=== PATIENT | female | born 1965 | race Caucasian/White ===

== ENCOUNTER 2018-12-30 14:59 | Emergency (ER) | payer BC ==
[2018-12-30] MEDS ORDERED: Sodium Chloride 0.9% 10 ML Syringe FLUSH PRN (15:09)
[2018-12-30] MEDS ORDERED: Sodium Chloride 0.9% 1,000 ML IV SCH (15:15)
[2018-12-30] MEDS ORDERED: Acetaminophen 325 MG Tab PO ONE (15:23)
[2018-12-30] MEDS ORDERED: Haloperidol Lactate 5 MG/ML SDV IM ONE (15:24)
[2018-12-30] MEDS ORDERED: Benztropine 1 MG Tab PO ONE (15:26)
--- NOTE | 2018-12-30 15:34 | EDM.PDOC ---
ED HPI GENERAL MEDICAL PROBLEM - General Chief Complaint: Neuro Symptoms/Deficits Stated Complaint: NUMBNESS ON RIGHT SIDE Time Seen by Provider: 12/30/18 15:07 Source of Information: Reports: Patient History Limitations: Reports: No Limitations - History of Present Illness INITIAL COMMENTS - FREE TEXT/NARRATIVE: Patient is a 53-year-old female presents ED complaining of left-sided occipital headache with paresthesias to the left side of her face, neck, chest, upper arm. Initial NIH score is 0. This started proximal one hour ago. She has no slurred speech, vision changes, tongue deviation, weakness discrepancies to the upper and lower extremities, gait abnormalities, or any history of CVA/TIA. She states all symptoms came on after the headache started. Headache is mild to moderate intensity. Rated 5 out of 10. Localized with no radiation. There's been no recent trauma that precipitated this. She has had similar symptoms approximately one week ago. The parathesia's came on with the headache and resolved with a headache as well. She has no history of migraines. She has not taken any medications prior to arrival. She denies any fever, chills, sinus congestion, ear pain, throat pain, chest pain, sob, abdominal pain, nausea or vomiting, or focal neurological deficits. Symptoms came on at 1400 hrs today. She carries a history of breast cancer with double mastectomy required no chemotherapy or radiation. She is currently on no medications. Surgical history includes: Total hysterectomy, right hip replacement. She has no PCP. She does not smoke. She's not use alcohol. She denies recreational drugs. Headache Pain Score (Numeric/FACES): 7 - Related Data Allergies Allergy/AdvReac Type Severity Reaction Status Date / Time duloxetine HCl Allergy Headache Verified 12/30/18 15:17 [From Cymbalta] tattoo ink Allergy Airway Uncoded 03/21/15 01:13 Tightness Home Meds: Home Meds Apixaban [Eliquis] 2.5 mg PO BID 03/13/15 [History] Hydrocodone/Acetaminophen [Hydrocodon-Acetaminoph 7.5-325] 1 - 2 tab PO ASDIRECTED PRN 03/13/15 [History] hydrOXYzine Pamoate [Hydroxyzine Pamoate] 25 mg PO ASDIRECTED PRN 03/13/15 [ History] Past Medical History Other HEENT History: Eye surgery for vision keretotomy - Past Surgical History Other Musculoskeletal Surgeries/Procedures:: RTH on Sunday due to "history of hip dysplasia and socket was worn out" Social & Family History - Tobacco Use Smoking Status *Q: Never Smoker ED ROS GENERAL - Review of Systems Review Of Systems: ROS reveals no pertinent complaints other than HPI. ED EXAM, NEURO - Physical Exam Exam: See Below Exam Limited By: No Limitations General Appearance: Alert, WD/WN, No Apparent Distress Eye Exam: Bilateral Eye: EOMI, Normal Inspection, Nystagmus (none noted), PERRL , Vision Changes (none stated) Ears: Hearing Grossly Normal Nose: Normal Inspection Throat/Mouth: Normal Inspection, Normal Oropharynx, Normal Voice, No Airway Compromise Head Exam: Atraumatic, Normocephalic Neck: Normal Inspection, Supple Respiratory/Chest: No Respiratory Distress, Lungs Clear, Normal Breath Sounds, No Accessory Muscle Use Cardiovascular: Normal Peripheral Pulses, Regular Rate, Rhythm, No Murmur ( obvious) Neurological: Alert, Normal Mood/Affect, Normal Dorsiflexion, CN II-XII Intact, Normal Plantar Flexion, No Motor/Sensory Deficits, Oriented x 3, Other (No facial droop, slurred speech, tongue deviation, weakness discrepancies to the upper and lower extremities. Pronator drift negative. [id number] and rapid alternating movements are intact. ) Back Exam: Normal Inspection Extremities: Non-Tender, No Pedal Edema Psychiatric: Normal Affect, Normal Mood Skin Exam: Warm, Dry, Intact, Normal Color, No Rash Course - Vital Signs Last Recorded V/S: Last Vital Signs Temp 97.2 F 12/30/18 15:07 Pulse 79 12/30/18 15:07 Resp 16 12/30/18 15:07 BP 169/83 H 12/30/18 15:07 Pulse Ox 98 12/30/18 15:07 - Orders/Labs/Meds Orders: Active Orders 24 hr Category Date Time Status EKG Documentation Completion [RC] STAT Care 12/30/18 15:10 Active Peripheral IV Care [RC] . DIRECTED Care 12/30/18 15:09 Active Head wo Cont [CT] Routine Exams 12/30/18 15:00 Taken Sodium Chloride 0.9% [Normal Saline] 1,000 ml Med 12/30/18 15:15 Active IV ASDIRECTED Sodium Chloride 0.9% [Saline Flush] Med 12/30/18 15:09 Active 10 ml FLUSH ASDIRECTED PRN Peripheral IV Insertion Adult [OM.PC] Routine Oth 12/30/18 15:09 Ordered Peripheral IV Insertion Adult [OM.PC] Routine Oth 12/30/18 15:12 Ordered Medication Orders Sodium Chloride (Normal Saline) 1,000 mls @ 150 mls/hr IV ASDIRECTED MARSHA Last Admin: 12/30/18 15:33 Dose: 150 mls/hr Sodium Chloride (Saline Flush) 10 ml FLUSH ASDIRECTED PRN PRN Reason: Keep Vein Open Last Admin: 12/30/18 15:34 Dose: 10 ml Labs: Laboratory Tests 12/30/18 12/30/18 12/30/18 Range/Units 15:06 15:30 15:30 WBC 5.04 (3.98-10.04) K/mm3 RBC 4.46 (3.98-5.22) M/mm3 Hgb 13.6 (11.2-15.7) gm/L Hct 41.4 (34.1-44.9) % MCV 92.8 (79.4-94.8) fl MCH 30.5 (25.6-32.2) pg MCHC 32.9 (32.2-35.5) g/dl RDW Std Deviation 44.9 (36.4-46.3) fL Plt Count 244 (182-369) K/mm3 MPV 8.9 L (9.4-12.3) fl Neutrophils % (Manual) 47 (40-60) % Band Neutrophils % 1 (0-10) % Lymphocytes % (Manual) 43 H (20-40) % Atypical Lymphs % 0 % Monocytes % (Manual) 8 (2-10) % Eosinophils % (Manual) 1 (0.7-5.8) % Basophils % (Manual) 0 L (0.1-1.2) Platelet Estimate Adequate RBC Morph Comment Normal PT (9.5-12.1) SECONDS INR APTT (24-31) SECONDS Sodium 141 (136-145) mEq/L Potassium 3.9 (3.5-5.1) mEq/L Chloride 104 (98-107) mEq/L Carbon Dioxide 29 (21-32) mEq/L Anion Gap 11.9 (5-15) BUN 18 (7-18) mg/dL Creatinine 0.7 (0.55-1.02) mg/dL Est Cr Clr Drug Dosing 79.34 mL/min Estimated GFR (MDRD) > 60 (>60) mL/min BUN/Creatinine Ratio 25.7 H (14-18) Glucose 134 H (74-106) mg/dL POC Glucose 108 H (70-105) mg/dL Calcium 9.5 (8.5-10.1) mg/dL Total Bilirubin 0.4 (0.2-1.0) mg/dL AST 20 (15-37) U/L ALT 29 (14-59) U/L Alkaline Phosphatase 75 (46-116) U/L Troponin I < 0.017 (0.00-0.056) ng/mL Total Protein 7.5 (6.4-8.2) g/dl Albumin 4.2 (3.4-5.0) g/dl Globulin 3.3 gm/dL Albumin/Globulin Ratio 1.3 (1-2) /18/19 Range/Units 15:30 WBC (3.98-10.04) K/mm3 RBC (3.98-5.22) M/mm3 Hgb (11.2-15.7) gm/L Hct (34.1-44.9) % MCV (79.4-94.8) fl MCH (25.6-32.2) pg MCHC (32.2-35.5) g/dl RDW Std Deviation (36.4-46.3) fL Plt Count (182-369) K/mm3 MPV (9.4-12.3) fl Neutrophils % (Manual) (40-60) % Band Neutrophils % (0-10) % Lymphocytes % (Manual) (20-40) % Atypical Lymphs % % Monocytes % (Manual) (2-10) % Eosinophils % (Manual) (0.7-5.8) % Basophils % (Manual) (0.1-1.2) Platelet Estimate RBC Morph Comment PT 10.2 (9.5-12.1) SECONDS INR 0.93 APTT 26 (24-31) SECONDS Sodium (136-145) mEq/L Potassium (3.5-5.1) mEq/L Chloride (98-107) mEq/L Carbon Dioxide (21-32) mEq/L Anion Gap (5-15) BUN (7-18) mg/dL Creatinine (0.55-1.02) mg/dL Est Cr Clr Drug Dosing mL/min Estimated GFR (MDRD) (>60) mL/min BUN/Creatinine Ratio (14-18) Glucose (74-106) mg/dL POC Glucose (70-105) mg/dL Calcium (8.5-10.1) mg/dL Total Bilirubin (0.2-1.0) mg/dL AST (15-37) U/L ALT (14-59) U/L Alkaline Phosphatase (46-116) U/L Troponin I (0.00-0.056) ng/mL Total Protein (6.4-8.2) g/dl Albumin (3.4-5.0) g/dl Globulin gm/dL Albumin/Globulin Ratio (1-2) Meds: Medications Generic Name Dose Route Start Last Admin Trade Name Freq PRN Reason Stop Dose Admin Sodium Chloride 1,000 mls @ 150 mls/hr 12/30/18 15:15 12/30/18 15:33 Normal Saline IV 150 mls/hr ASDIRECTED MARSHA Administration Sodium Chloride 10 ml 12/30/18 15:09 12/30/18 15:34 Saline Flush FLUSH 10 ml ASDIRECTED PRN Administration Keep Vein Open Discontinued Medications Generic Name Dose Route Start Last Admin Trade Name Freq PRN Reason Stop Dose Admin Acetaminophen 975 mg 12/30/18 15:23 12/30/18 15:41 Tylenol PO 12/30/18 15:24 975 mg NOW ONE Administration Benztropine Mesylate 1 mg 12/30/18 15:26 12/30/18 15:42 Cogentin PO 12/30/18 15:27 1 mg ONETIME ONE Administration Haloperidol Lactate 5 mg 12/30/18 15:24 12/30/18 15:40 Haldol IM 12/30/18 15:25 5 mg ONETIME ONE Administration - Re-Assessments/Exams Free Text/Narrative Re-Assessment/Exam: Stroke alert called for left-sided occipital headache with paresthesias to the left side of the face, neck, upper chest, and upper arm. Initial NIH score is 0. Upon returning back to the examination room. Vital signs with admission to the ED: Blood pressure 169/83, heart rate 79, temperature 97.2, SPO2 98%, and respiratory rate 16. Initial examination patient has no focal neurological deficits. No facial droop , slurred speech, tongue deviation, weakness discrepancies to the upper and lower extremities. Finger to nose and rapid alternating movements are intact. Headache is located on left side occipital region with paresthesias to the left side of the face, neck, upper chest, and upper arm. This came on abruptly with headache one hour ago on its own accord with no known precipitating factors. Headache is mild to moderate in nature. She has not received any medications prior to arrival. She has a history of similar symptoms one week ago that came after drinking one beer. She states normally with streaking. She gets a headache. This went away over the night. She had no residual effects. Initial NIH scale is negative. Differential diagnosis: Complex migraine or TIA/stroke. Highly unlikely related to a stroke with headache present with paresthesias on unilateral side. IV established with NS 150mls/hr. Initial labs and studies will include: CBC, C14, Troponin, coag studies, EKG, and CXR. I have discussed the patient with Dr. Diaz and he suspects patient has a complex migraine. Suggested haldol 5mg IM and cogentin 1mg PO. If resolves with medications it is migraine in nature. No testing required. EKG: NSR. AVB. Q waves present in inferior leads. No ischemic changes. CT of the head impression: No findings concerning for intracerebral hemorrhage. Final interpretation is pending. CXR: No acute findings noted. Reviewed with Dr. Diaz. Final interpretation is pending. 12/30/18 16:20 Reassessment, patient states her headache is gone. Paraesthesias to the left arm/neck are gone. Patient continues to have residual n/t to the face. She exhibits no focal neurological deficts. VSS. Again I suspect this is more likely a complex migraine. Symptoms are improving after administration of abortive medications. Patient is ready be discharged home. Will allow the symptoms to subside prior to discharge. 12/30/18 16:[address] Rashid [facility]rologists at [facility]. He agreed most likely related to a complex migraine due to pattern of symptoms. States TIA is of concern as well. Recheck BP 117/99. Suggested starting patient on ASA 81 mg PO qday with close followup with a PCP . If symptoms reoccur to return back to the E.D. Patients symptoms have almost completely resolved. Patient has very minimal paraesthesias to the left side of the upper/lower lips. No focal neurological findings. I will discharge patient with instructions as documented. Return precautions discussed with the patient. She agreed with plan and had no further questions. Departure - Departure Time of Disposition: 17:02 Disposition: Home, Self-Care 01 Condition: Good Clinical Impression: Facial paresthesia, Arm paresthesia, left Migraine Qualifiers: Migraine type: unspecified Status migrainosus presence: without status migrainosus Intractability: not intractable Qualified Code(s): G43.909 - Migraine, unspecified, not intractable, without status migrainosus - Discharge Information Instructions: Paresthesia, Migraine Headache, [id number], Recurrent Migraine Headache, [id number] Forms: ED Department Discharge Additional Instructions: As discussed suspect cause of symptoms is mostly likely a complex migraine. Largely impart with resolution of headache the paresthesias subside. You were administered a medication that commonly will abort migraine headaches. All your symptoms have almost completely resolved. With that said your blood pressure was quite elevated with admission to the ED. I suggest buying a over-the- counter blood pressure machine and check your blood pressure regularly. Please follow the instructions as listed below. May utilize Tylenol and ibuprofen in alternating fashion for headache. If for any reason you develop any new or worsening symptoms please return back to the ED for reevaluation DADA. There is a possibility this may related to a TIA. This is transient ischemic stroke which maybe a precursor to bigger stroke. I have spoken with Dr. Lerma Neurologists at [place] and he agrees most likely a migraine but should be aware of TIA/Stroke like symptoms. He suggested starting you on ASA 81mg daily. Establish medical care with a PCP locally for further evaluation. - My Orders Last 24 Hours: My Active Orders 12/30/18 15:00 Head wo Cont [CT] Routine 12/30/18 15:09 Peripheral IV Care [RC] . DIRECTED Sodium Chloride 0.9% [Saline Flush] 10 ml FLUSH ASDIRECTED PRN Peripheral IV Insertion Adult [OM.PC] Routine 12/30/18 15:10 EKG Documentation Completion [RC] STAT 12/30/18 15:12 Peripheral IV Insertion Adult [OM.PC] Routine 12/30/18 15:15 Sodium Chloride 0.9% [Normal Saline] 1,000 ml IV ASDIRECTED - Assessment/Plan Last 24 Hours: My Active Orders 12/30/18 15:00 Head wo Cont [CT] Routine 12/30/18 15:09 Peripheral IV Care [RC] . DIRECTED Sodium Chloride 0.9% [Saline Flush] 10 ml FLUSH ASDIRECTED PRN Peripheral IV Insertion Adult [OM.PC] Routine 12/30/18 15:10 EKG Documentation Completion [RC] STAT 12/30/18 15:12 Peripheral IV Insertion Adult [OM.PC] Routine 12/30/18 15:15 Sodium Chloride 0.9% [Normal Saline] 1,000 ml IV ASDIRECTED
--- NOTE | 2018-12-30 16:38 | CR ---
Chest: Portable view of the chest was obtained. Comparison: Previous chest x-ray of 03/13/15. Heart size and mediastinum are within normal limits for portable technique. Lungs are clear. Bony structures show minimal scoliosis within the spine. Surgical clips are seen within the left axillary region. Impression: 1. Incidental findings. Nothing acute is seen. Diagnostic code #2
[2018-12-30 17:28] VITALS: BP 119/86
--- NOTE | 2018-12-31 06:23 | CT ---
Head CT Technique: Multiple axial sections through the brain were obtained. Intravenous contrast was not utilized. Comparison: Prior head CT study of 03/13/15. Findings: Ventricles along with basal cisterns and sulci over the convexities are within normal limits for the patient's age. No abnormal parenchymal densities are seen. No evidence of intracranial hemorrhage. No midline shift or mass effect is seen. Bone window settings were reviewed which show the visualized sinuses to appear clear. No acute calvarial abnormality is identified. Impression: 1. No acute intracranial abnormality is identified. MRI could now be considered to further evaluate. Diagnostic code #1 MTDD
== END 2018-12-30 17:19 | disposition home or self-care (01) ==
LOC: JD.ED 14:59
DX: G43.909 Migraine, unspecified, not intractable, without status migrainosus (principal); R20.2 Paresthesia of skin; Z91.09 Other allergy status, other than to drugs and biological substances; Z88.8 Allergy status to other drugs, medicaments and biological substances; Z90.710 Acquired absence of both cervix and uterus; Z96.641 Presence of right artificial hip joint; Z85.3 Personal history of malignant neoplasm of breast
CPT/HCPCS: 36415; 70450; 71045; 80053; 82962; 84484; 85007; 85027; 85610; 85730; 93005; 96360; 96361; 96372; 99285; A9270; J1630; J7040; 99284

== ENCOUNTER 2022-11-02 09:15 | Day surgery (SDC) | payer BC ==
[~2022-11-02 09:15] MED LIST: Lactated Ringers 1,000 ML IV SCH; Lidocaine 1%/Sod Bicarbonate in NS 8.4% 1 ML Syringe IDERM PRN; Sodium Chloride 0.9% 10 ML Syringe FLUSH PRN; Sodium Chloride 0.9% 10 ML Syringe FLUSH SCH
[2022-11-02] MEDS ORDERED: Bupivacaine 0.25% 10 ML SDV ONE (09:52)
[2022-11-02] MEDS ORDERED: Lidocaine 1% 10 ML MDV ONE (09:52)
[2022-11-02] MEDS ORDERED: Propofol 200 MG/20 ML SDV ONE (10:02)
[2022-11-02] MEDS ORDERED: Lidocaine 1% 2 ML ONE (10:02)
[2022-11-02] MEDS ORDERED: fentaNYL 100 MCG/2 ML SDV ONE (10:03)
[2022-11-02] MEDS ORDERED: Midazolam 1 MG/ML 2 ML SDV ONE (10:03)
[2022-11-02 11:31] VITALS: BP 110/68; PULSE 70
== END 2022-11-02 11:28 | disposition home or self-care (01) ==
LOC: JD.SDS 09:15
PROVIDERS: ATTEND Orthopaedic Surgery
DX: G56.01 Carpal tunnel syndrome, right upper limb (principal); G56.11 Other lesions of median nerve, right upper limb; E66.3 Overweight; Z79.899 Other long term (current) drug therapy; Z98.890 Other specified postprocedural states; Z90.710 Acquired absence of both cervix and uterus; Z68.26 Body mass index [BMI] 26.0-26.9, adult; Z88.8 Allergy status to other drugs, medicaments and biological substances
CPT/HCPCS: 64721; J2250; J2704; J3010; J3490; J7120; 01810